=== PATIENT | female | born 1940 | race Caucasian/White ===

== ENCOUNTER 2016-09-13 17:44 | Outpatient (CLI) | payer OTHER ==
[~2016-09-13 17:44] MED LIST: ASPIRIN EC81 MG PO; DIGOXIN0.25 MG PO; EPIPEN 2-PAK0.3 MG INJ; GLIMEPIRIDE1 MG PO; GLUCOSAMINE500 MG PO; HUMALIN 70/30 SC; IBUPROFEN400 MG PO; LIPITOR80 MG PO; LOSARTAN POTAS100 MG PO; MAGNESIUM400 M1 PO; OMEPRAZOLE20 M1 PO; SERTRALINE HCL50 MG PO; VICODIN EQUIVAL1 TAB PO; VITAMIN B121000 CR PO
--- NOTE | 2016-09-13 18:16 | DIAGNOSTIC IMAGING REPORT ---
PROCEDURE: XR CHEST 2 VIEW INDICATION: URI TECHNIQUE: PA and lateral views. COMPARISON: Chest 10/07/1958 FINDINGS: Lungs are clear. Mild cardiomegaly. Thorax is normal. IMPRESSION: 1. No acute disease. Mild cardiomegaly
== END 2016-09-13 23:00 ==
LOC: XR SRH 17:44
DX: J06.9 Acute upper respiratory infection, unspecified (principal); J45.909 Unspecified asthma, uncomplicated

== ENCOUNTER 2016-10-17 14:10 | Outpatient (CLI) | payer OTHER ==
--- NOTE | 2016-10-17 19:28 | DIAGNOSTIC IMAGING REPORT ---
PROCEDURE: MG BILATERAL SCREENING W/CAD INDICATION: Screening. Family history breast carcinoma (cousins, aunts). TECHNIQUE: Bilateral CC and MLO digital views. COMPARISON: Compared to 07/25/2006, 04/12/2005. FINDINGS: Computer-aided detection applied. Moderately with a few dystrophic and vascular calcifications. No change. IMPRESSION: 1. Negative mammogram RESULT CODE: 1- Negative. A. A negative report should not delay biopsy if a dominant or clinically suspicious mass is present. 10-15% of cancers are not identified by x-ray. B. A negative report may reinforce clinical impression. C. Adenosis and dense breasts may obscure an underlying neoplasm. D. False positive reports average 6-10%. E.. A yearly screening mammogram is recommended. A reminder letter will be scheduled.
== END 2016-10-17 23:00 ==
LOC: MAM SRH 14:10
DX: Z12.31 Encounter for screening mammogram for malignant neoplasm of breast (principal); Z80.3 Family history of malignant neoplasm of breast

== ENCOUNTER 2016-11-21 11:56 | Inpatient (IN) | payer OTHER ==
[~2016-11-21] VITALS: Ht 160 cm; Wt 121.7 kg
--- NOTE | 2016-11-21 12:39 | DIAGNOSTIC IMAGING REPORT ---
PROCEDURE: XR CHEST 1 VIEW INDICATION: CP AND SOB TECHNIQUE: Portable AP view 12:16 p.m. COMPARISON: Chest 09/13/2016 and 10/07/1958 FINDINGS: Lungs are clear. Cardiomegaly. Thorax is normal. IMPRESSION: 1. Cardiomegaly. Lungs clear.
--- NOTE | 2016-11-21 17:39 | DIAGNOSTIC IMAGING REPORT ---
PROCEDURE: NM PULMONARY PERFUSION W/VENT INDICATION: Shortness of breath. TECHNIQUE: 40 mCi of technetium-99m DTPA was aerosolized and inhaled. 6 mCi technetium-99m MAA was injected intravenously. Ventilation and perfusion images were obtained in the AP, PA, right lateral, left lateral, KELLER, ST LUCIAN, RPO and LPO positions. COMPARISON: Comparison is made to chest x-ray earlier today (11/21/2016). FINDINGS: There are mildly heterogeneous ventilatory changes throughout the lungs without significant perfusion changes. Overall appearance is compatible with low probability for pulmonary embolus IMPRESSION: 1. Low probability for pulmonary embolus. 2. Findings discussed with Dr. Rose.
--- NOTE | 2016-11-21 17:39 | DIAGNOSTIC IMAGING REPORT ---
PROCEDURE: NM PULMONARY PERFUSION W/VENT INDICATION: Shortness of breath. TECHNIQUE: 40 mCi of technetium-99m DTPA was aerosolized and inhaled. 6 mCi technetium-99m MAA was injected intravenously. Ventilation and perfusion images were obtained in the AP, PA, right lateral, left lateral, KELLER, TAJIK, RPO and LPO positions. COMPARISON: Comparison is made to chest x-ray earlier today (11/21/2016). FINDINGS: There are mildly heterogeneous ventilatory changes throughout the lungs without significant perfusion changes. Overall appearance is compatible with low probability for pulmonary embolus IMPRESSION: 1. Low probability for pulmonary embolus. 2. Findings discussed with Dr. Rose.
--- NOTE | 2016-11-21 18:21 | ED CLINICAL REPORT ---
Clinical Report - Physicians/Mid Levels [facility] [address] [place] [address] 11/21/2016 11:55 Patient: MARYANN GORDON Time Seen: 1200. Arrived- By private vehicle. Historian- patient (daughter). HISTORY OF PRESENT ILLNESS Chief Complaint: DYSPNEA. This started past few days and is still present. It was gradual in onset and has been constant but is not gone now. The dyspnea is described as moderate and is worsened by exertion, is improved by rest and is improved with sitting upright. The patient has had a cough. She has had scant amounts of white sputum. No fever, chest pain or discomfort, calf pain or foot swelling. No anxiety. Similar symptoms previously: (a few times). Recent medical care: Not recently seen/assessed. REVIEW OF SYSTEMS The patient has not had weight loss. No sore throat, nasal discharge, nausea, vomiting or abdominal pain. No diarrhea or skin rash. All systems otherwise negative, except as recorded above. PAST HISTORY See nurses notes. Medications: Gabapentin Oral. Torsemide Oral. Atorvastatin Calcium Oral 80 mg, daily. Carvedilol 3.125 mg twice a day. Eliquis Oral (Tablet 5 mg) 1 tablet, twice a day. EpiPen 2-Roshan Injection. Glimepiride Oral (Tablet 4 mg) 1 tablet, twice a day. Glucosamine HCl Oral (Tablet 500 mg) 1 tablet, twice a day. HumuLIN 70/30 Subcutaneous 27 units q am and 10 units q pm. Lanoxin Oral 0.125 mg, daily. Losartan Potassium Oral 100 mg, daily. Magnesium Oral 500 mg, 2x a day. Omeprazole Oral 20 mg, daily. Sertraline HCl Oral 50 mg, daily. Allergies: Allopurinol. Colchicine. Keflex. Metformin HCl. Penicillins.(swelling) Septra.(hives) Sulfa Antibiotics. Uloric. Vicodin. SOCIAL HISTORY Never smoker. No alcohol use or drug use. No recent travel. Is a local resident. ADDITIONAL NOTES The nursing notes have been reviewed. PHYSICAL EXAM Vital Signs: 11/21/2016 12:02 BP: 132/100. HR: 126. RR: 18. O2 saturation: 94%. Temp: 97.8 F. Oxygen saturation: on oxygen- oxygen saturation low. Appearance: Alert. No acute distress. Eyes: Pupils equal, round and reactive to light. Eyes normal inspection. ENT: Ears normal. Nose normal. Pharynx normal. Uvula midline. Neck: Normal inspection. No jugular venous distention. Neck supple. No JVD. CVS: Tachycardia. Abnormal rhythm. Heart sounds normal. Pulses normal. Respiratory: No respiratory distress. Breath sounds normal. No splinting, wheezes, stridor, rales or rhonchi. Abdomen: Soft and nontender. No organomegaly. Back: Normal inspection. Skin: Skin warm and dry. Normal skin color. No rash. Normal skin turgor. Extremities: Bilateral mild 1+ edema of the lower extremities. Extremities exhibit normal ROM. Neuro: Oriented X 3. No motor deficit. No sensory deficit. LABS, X-RAYS, AND EKG EKG: Atrial fibrillation (narrow-complex) (120). Normal QRS complex. Normal axis. Normal ST and T waves, QT and QTc. a fib with RVR. The study has been interpreted contemporaneously. The study has been independently viewed by me. The EKG appears to be a good tracing. Chest X-ray: (PROCEDURE: XR CHEST 1 VIEW INDICATION: CP AND SOB TECHNIQUE: Portable AP view 12:16 p.m. COMPARISON: Chest 09/13/2016 and 10[birth year]07[birth year]1958 FINDINGS: Lungs are clear. Cardiomegaly. Thorax is normal. IMPRESSION: 1. Cardiomegaly. Lungs clear.). V/Q Scan: Low probability for pulmonary embolism. The study was independently viewed by me and interpreted by the radiologist. The study was discussed with the radiologist (via phone). (PROCEDURE: NM PULMONARY PERFUSION W/VENT INDICATION: Shortness of breath. TECHNIQUE: 40 mCi of technetium-99m DTPA was aerosolized and inhaled. 6 mCi technetium-99m MAA was injected intravenously. Ventilation and perfusion images were obtained in the AP, PA, right lateral, left lateral, KELLER, JENS, RPO and LPO positions. COMPARISON: Comparison is made to chest x-ray earlier today (11/21/2016). FINDINGS: There are mildly heterogeneous ventilatory changes throughout the lungs without significant perfusion changes. Overall appearance is compatible with low probability for pulmonary embolus IMPRESSION: 1. Low probability for pulmonary embolus.). Laboratory Tests: UA-Culture if indicated: (CONRAD: 11/21/2016 14:45) ( [facility] 11/21/2016 15:10) Final results Test Result Flag Units (Reference) URINE COLOR YELLOW URINE APPEARANCE CLEAR URINE GLUCOSE NEGATIVE (NEGATIVE) URINE BILIRUBIN NEGATIVE (NEGATIVE) URINE KETONE NEGATIVE (NEGATIVE) URINE SPECIFIC GRAVITY 1.020 (1.010-1.030) URINE PH 6.0 (5.0-8.0) URINE PROTEIN TRACE (NEGATIVE) URINE UROBILINOGEN 0.2 EU/dL (0.2-1.0) URINE NITRITE NEGATIVE (NEGATIVE) URINE BLOOD NEGATIVE (NEGATIVE) URINE LEUK ESTERASE NEGATIVE (NEGATIVE) URINE RBC NONE SEEN rbc/hpf (0-1) URINE WBC 1-3 wbc/hpf (0-1) URINE EPITHELIAL CELLS 1-3 EPI/hpf (0-5) URINE BACTERIA TRACE (<1+) (NONE SEEN) URINE COMMENT CULT NOT INDICATED 5-10 HYALINE CASTS/LPFURINE CULTURES ARE SET-UP BASED ON THE FOLLOWING CRITERIA:POSITIVE NITRITEPOSITIVE LEUKOCYTE ESTERASEGREATER THAN 10 WHITE BLOOD CELLSMODERATE (2+) OR GREATER BACTERIA CBC w Diff: (CONRAD: 11/21/2016 12:02) ( [facility] 11/21/2016 12:34) Final results Test Result Flag Units (Reference) WHITE BLOOD COUNT 7.6 K/uL (4.5-11.5) RED BLOOD COUNT 4.26 M/uL (4.00-5.20) HEMOGLOBIN 12.5 gm/dL (12.0-16.0) HEMATOCRIT 38.6 % (36.0-46.0) MEAN CELL VOLUME 91 fL (80-100) MEAN CORPUSCULAR HGB 29 pg (26-34) MEAN CORPUSCULAR HGB CONC 32 g/dL (31-37) RED CELL DISTRIBUTION WIDTH 16.8 H % (11.6-14.8) PLATELET COUNT 176 K/uL (150-400) NEUTROPHIL % 73.1 % (50-75) LYMPH % 18.4 L % (25-40) MONO % 6.8 % (3-14) EOSINOPHIL % 1.0 % (0-4) BASOPHIL % 0.7 % (0-2) PT with INR: (CONRAD: 11/21/2016 12:02) ( [facility] 11/21/2016 12:39) Final results Test Result Flag Units (Reference) INR 1.5 H (0.8-1.2) Low Intensity Therapy: INR 1.5-2.0 PT range 18.5-23.1Mod.Intensity Therapy: INR 2.0-3.0 PT range 23.1-31.5High Intensity Therapy: INR 2.5-3.5 PT range 27.4-35.5High Intensity Therapy 2: INR 3.0-4.0 PT range 31.5-39.3 D-DIMER QUANTITATIVE 2.99 H ug/mLFEU (0.27-0.52) The primary value of this quantitative assay relates toits negative predictive value (i.e. exclusion) of pulmonaryembolism/deep vein thrombosis/DIC.Elevated levels of d-dimer may also occur with:, age, cancer, inflammation, liver disease,post-op, infection, hematoma, coronary disease, peripheralarteriopathy, bleeding disorders and thrombolytic treatment.Results should be correlated with other clinical andradiological data.Testing Methodology: Latex Immunoassay BNP: (CONRAD: 11/21/2016 12:02) ( [facility] 11/21/2016 13:46) Final results Test Result Flag Units (Reference) B-TYPE NATRIURETIC PEPTIDE 947 H pg/ml (5-100) TSH: (CONRAD: 11/21/2016 12:02) ( [facility] 11/21/2016 13:40) Final results Test Result Flag Units (Reference) THYROID STIMULATING HORMONE 2.343 uIU/mL (0.30-3.74) CMP: (CONRAD: 11/21/2016 12:02) ( [facility] 11/21/2016 12:50) Final results Test Result Flag Units (Reference) GLUCOSE 258 H mg/dL (70-110) BUN 49 H mg/dL (7-18) CREATININE 1.7 H mg/dL (0.6-1.3) Estimated GFR 31.14 mL/min Estimated GFR- 37.74 mL/min Note: Persistent reduction over 3 months in eGFR<60 mL/min/1.73 m2 defines CKD. Patients with eGFR values>=60 mL/min/1.73 m2 may also have CKD if evidence ofpersistent proteinuria. Additional information may be foundat www.kidney.org. SODIUM 136 mmol/L (136-145) POTASSIUM 5.1 mmol/L (3.5-5.1) CHLORIDE 100 mmol/L (98-107) CARBON DIOXIDE 25 mmol/L (21-32) CALCIUM 9.0 mg/dL (8.5-10.1) TOTAL PROTEIN 8.0 g/dL (6.4-8.2) ALBUMIN 3.3 g/dL (3.3-5.0) BILIRUBIN, TOTAL 1.6 H mg/dL (0.0-1.0) ALKALINE PHOSPHATASE 78 U/L (46-116) AST (SGOT) 37 U/L (15-37) ALT (SGPT) 26 U/L (12-78) TROPONIN I <0.05 ng/mL (0.00-1.5) TROPONIN REFERENCE RANGE:<0.1 NEGATIVE0.1-1.5 INDETERMINANT>1.5 POSITIVE . PROGRESS AND PROCEDURES Course of Care: The patient is a pleasant 76-year-old female with complex past medical history including hypertension, atrial fibrillation, and congestive heart failure as well as diabetes the patient is presenting for evaluation of dyspnea. Differential diagnosis at this time includes congestive heart failure exacerbation, acute myocardial infarction, pneumonia, And PE.. Patient will be evaluated with EKG, chest x-ray, and laboratory studies. Patient is agreeable to the treatment and plan. Patient is noted to be in A. fib with RVR. Because of this, adose of IV metoprolol has been ordered. We'll monitor for their effects. Patient was reevaluated and found to have significant improvement with her atrial fibrillation. Patient is no longer in rapid ventricular response. Laboratory studies are still pending at this time. EKG is noted to be unremarkable. Patient's laboratory studies and EKG are noted for the findings above. Patient will likely need to be admitted to the hospital however because of the patient's elevated d-dimer And elevated creatinine, a ventilation perfusion scan was ordered. Updated family on the time we will need to take for the ventilation perfusion scan totake place. The medication needs to be transported from [place] [facility]. Ventilation perfusion scan is low probability. Because of the patient's negative workup for pulmonary embolism, did not fill the patient has pulmonary embolism. Patient will need to be admitted to the hospital for congestive heart failure exacerbation. Patient in daughter agreeable to the treatment and plan. I discussion patient in regards to her workup here in the emergency department as well as diagnosis and plan of care. All questions have been answered. The patient was admitted to the hospital. Critical care performed (50 minutes). Time is exclusive of separately billable procedures. Time includes: direct patient care, patient reassessment, coordination of patient care, interpretation of data (laboratory data), review of patient's medical records, medical consultation, family consultation regarding treatment decisions and documentation of patient care. CLINICAL IMPRESSION a fib with rvr acute CHF exacerbation. (Electronically signed by Benedicto Rose Dr. 11/27/2016 8:56)
--- NOTE | 2016-11-21 18:21 | ED ORDER SUMMARY ---
..... Patient: MARYANN [facility]ORD[facility] VisitID: [id number] [place] [address] 76y, F Registration Date/Time: 11/21/2016 ORDER SHEET Weight: 115.2 kg (stated) Allergies: Allopurinol, Keflex, Metformin HCl, Penicillins, Septra, Sulfa Antibiotics, Vicodin, Colchicine, Uloric GENERAL ORDERS: Health Education Specialist (Continuous) (CP) (12:05 11/21/2016 Jesús Chester) (Ack 12:07 LNations ER Tech1) (12:15 KHoerner) Chest 1V Urgent (12:11/21/2016 Jesús Chester) (Ack 12:08 LNations ER Tech1) (12:15 KHoerner) CBC w Diff Urgent (12:11/21/2016 Jesús Chester) (Ack 12:07 LNations ER Tech1) (12:34 LWhalen R.N.) CMP Urgent (12:11/21/2016 Jesús Chester) (Ack 12:07 LNations ER Tech1) (12:34 LWhalen R.N.) PT with INR Urgent (12:11/21/2016 Jesús Chester) (Ack 12:07 LNations ER Tech1) (12:34 LWhalen R.N.) UA-Culture if indicated Urgent (12:11/21/2016 Jesús Chester) (Ack 12:08 LNations ER Tech1) (12:39 LWhalen R.N.) Troponin-I Urgent (12:11/21/2016 Jesús Chester) (Ack 12:08 LNations ER Tech1) (12:34 LWhalen R.N.) D-Dimer Urgent (12:11/21/2016 Jesús Chester) (Ack 12:08 LNations ER Tech1) (12:34 LWhalen R.N.) Pulse oximeter (12:11/21/2016 Jesús Chester) (Ack 12:07 LNations ER Tech1) (12:14 KHoerner) Oxygen (2 L/min) (NC) (12:05 11/21/2016 Jesús Chester) (Ack 12:07 LNations ER Tech1) (12:15 Favian) EKG - ER Stat (12:05 11/21/2016 Jesús Chester) (Ack 12:07 LNations ER Tech1) (12:14 Favian) TSH Urgent (12:30 11/21/2016 Jesús Chester) (Ack 12:33 LNations ER Tech1) (12:34 LWhalen R.N.) BNP Urgent (13:16 11/21/2016 Jesús Chester) (Ack 13:21 LNations ER Tech1) (15:26 LWhalen R.N.) VQ Scan (hx of CHF. GFR low) Urgent (13:17 11/21/2016 Jesús Chester) (Ack 13:21 LNations ER Tech1) (15:26 LWhalen R.N.) Diet (Please order in Vserv) (2000 frida Diabetic Diet) (13:44 11/21/2016 LNations ER Tech1 verbal order read back to Jesús Chester) (Ack 13:46 LNations ER Tech1) (15:26 LWhalen R.N.) MEDICATION ORDERS: - (12:30 11/21/2016 Jesús Chester) (Ack 12:46 LWhalen R.N.) (Cancelled: Other18:04 LWhalen R.N.) DuoNeb Neb Tx 1 unit dose (NOW) (13:15 11/21/2016 Jesús Chester) (14:16 Carol) Albuterol Neb Tx 2.5 mg (once now) (15:07 11/21/2016 Jesús Chestre) (Ack 15:27 LWhalen R.N.) (15:59 Carol) NitroGLYCERIN SL 0.4 mg (once now) (17:41 11/21/2016 Jesús Chester) (18:04 LWhalen R.N.) Insulin 70/30 Subcut (NOW) (18:39 11/21/2016 LWhalen R.N. verbal order read back to Jesús Chester) (19:06 LWhalen R.N.) NitroGLYCERIN Paste Topical 0.5 in. (NOW) (20:10 11/21/2016 Jesús Chester) (20:36 Shanice R.N.) IV FLUIDS: IV Saline Lock (12:05 11/21/2016 Jesús Chester) (12:10 eCcille R.N.) Metoprolol IV 2.5 mg (HIGH ALERT MEDICATION, NOW) (12:29 11/21/2016 Jesús Chester) (12:33 Martine R.N.) Lasix IV 20 mg (NOW) (17:40 11/21/2016 Jesús Chester) (18:04 Martine R.N.) ORDER SHEET NOTES: [Electronically signed by Serafin Mike R.N. (22:11 11/21/2016)] [Electronically signed by Benedicto Rose Dr. (08:56 11/27/2016)] [Electronically locked/signed by Serafin Mike R.N. (22:11 11/21/2016)]
--- NOTE | 2016-11-21 18:21 | ED NURSING NOTES ---
Clinical Report - Nurses [facility] [address] [place] [address] 11/21/2016 11:55 [id number] Triage time 12:Nov 21 2016. Acuity: LEVEL 2. Chief Complaint: SHORTNESS OF BREATH, DIFFICULTY BREATHING and WHEEZING. GA COMA SCORE: Ga Coma Scale: 15- eyes open spontaneously (4); best verbal response- oriented x 4 (5); best motor response- obeys commands (6). --12:10 Dre Valdez R.N. 12:02 11/21/16. BP: 132/100. HR: 126. RR: 18. O2 saturation: 94%. Temp: 97.8 F. Pain level now 2/10. --12:10 Dre Valdez R.N. Weight: 115.2 kg stated. Height/Length: 64 inches Per Patient. BMI: 43.6. --12:08 Dre Valdez R.N. Medications Atorvastatin Calcium Oral 80 mg, daily. Carvedilol 3.125 mg twice a day. Eliquis Oral (Tablet 5 mg) 1 tablet, twice a day. EpiPen 2-Roshan Injection. Glimepiride Oral (Tablet 4 mg) 1 tablet, twice a day. Glucosamine HCl Oral (Tablet 500 mg) 1 tablet, twice a day. HumuLIN 70/30 Subcutaneous 27 units q am and 10 units q pm. Lanoxin Oral 0.125 mg, daily. Losartan Potassium Oral 100 mg, daily. Magnesium Oral 500 mg, 2x a day. Omeprazole Oral 20 mg, daily. Sertraline HCl Oral 50 mg, daily. --12:06 Dre Valdez R.N. Torsemide Oral. --12:06 Dre Valdez R.N. Gabapentin Oral. --12:07 Dre Valdez R.N. Allergies Allopurinol. Keflex. Metformin HCl. Penicillins.(swelling) Septra.(hives) Sulfa Antibiotics. Vicodin. --12:06 Dre Valdez R.N. Colchicine. --12:07 Dre Valdez R.N. Uloric. --12:07 Dre Valdez R.N. History Arrived by private vehicle. Historian: patient. Accompanied by family. ( Chest pain along with SOB has had a previous cough. The pharmacy was out of Torsemide and fill her prescription has been out for three days.). She has had a cough, wheezing and chest pain. No fever, chills or back pain. PAST MEDICAL HX: Hypertension. Congestive heart failure. No history of asthma, chronic obstructive pulmonary disease or diabetes mellitus. Immunizations: up-to-date. SOCIAL HX: Never smoker. FALL RISK ASSESSMENT: Fall risk assessment completed. No fall risk identified. NUTRITIONAL RISK ASSESSMENT: The nutritional risk assessment revealed no deficiencies. FUNCTIONAL ASSESSMENT: Functional assessment: no impairments noted. LEARNING NEEDS ASSESSMENT: The learning needs assessment revealed no barriers. --12:10 Dre Valdez R.N. PROBLEMS: Abdominal Pain. Chest Pain. Dyspnea. Hypomagnesemia. Atrial Fibrillation. Congestive Heart Failure. Hives. Diabetes Mellitus. Immunizations. Syncope. Pneumonia. Sinus Problems. Diabetes Mellitus Type 2. Hypertension. --12:08 Dre Valdez R.N. ADDITIONAL SURGERIES: Cataract Surgery. Polyps from uterus. --12:08 Dre Valdez R.N. Interventions ID and allergy band on patient. --12:10 Dre Valdez R.N. PHYSICAL ASSESSMENT To room via wheelchair. GENERAL / NEURO / PSYCH: Alert. Oriented X 4. Appears in distress. HEENT: Mucous membranes are pink. RESPIRATORY: Mild respiratory distress. The patient can speak a few words at a time. Accessory muscle use. Chest wall tenderness. Breath sounds within normal limits. CVS: Normal sinus rhythm noted. Capillary refill less than 2 seconds. GI / : Abdomen soft and nontender. Bowel sounds within normal limits. SKIN: Skin is warm and dry. Normal skin turgor. --12:12 Dre Valdez R.N. ( patient sitting upright in bed, conversant, daughter at bedside.). GENERAL / NEURO / PSYCH: Alert. Oriented X 4. Appears in no acute distress. HEENT: Mucous membranes are pink. RESPIRATORY: Respirations not labored. Breath sounds within normal limits. CVS: Capillary refill less than 2 seconds. GI / : Abdomen soft. SKIN: Skin is warm and dry. --19:26 Serafin Mike R.N. NURSING PROGRESS NOTES 12:00 11/21/2016 Site #1 started via IV in the left antecubital space with an 20g angiocath, with aseptic technique and good blood return; one attempt. Blood drawn: rainbow set. Labeled in the presence of the patient and sent to the lab. Saline lock flushed with 10 mL saline. --12:10 Yonatan Cruz R.N. The initial plan of care for this patient includes an assessment with efforts to address patient positioning and appropriate ambient lighting. monitor and storage bin tender, pulse oximeter and NIBP monitor placed on patient. Reassurance given. Call light placed in reach. Side rails up x 1. Bed placed in lowest position. Brakes of bed on. --12:13 Dre Valdez R.N. 12:14 11/21/16. EKG time: (1211). EKG was performed by a joyce and shown to the ED physician. --12:14 Aldo Owusu 12:18 11/21/2016 Site #2 started via IV in the left antecubital space with an 20g angiocath, with aseptic technique and good blood return; one attempt. Blood drawn: rainbow set. Labeled in the presence of the patient and sent to the lab. Saline lock flushed with 10 mL saline. --12:33 Dre Valdez R.N. 12:33 11/21/2016 Metoprolol (Metoprolol Tartrate) IVP 2.5 mg given over 2 minute(s) via site #1. Allergies verified and confirmed 5 rights. IV patency established. IV site checked: no pain, redness, or swelling. IV flushed thoroughly pre- and post-medication administration. --12:33 Dre Valdez R.N. 13:15 11/21/2016 Duoneb (Ipratropium-Albuterol) Neb TX Nebulizer 1 unit dose given. Given by the respiratory therapist. Allergies verified and confirmed 5 rights. --14:16 Omayra Benson 14:08 11/21/2016 Albuterol Neb TX Nebulizer 1 unit dose given. Given by the respiratory therapist. Allergies verified and confirmed 5 rights. --15:59 Omayra Benson 18:04 11/21/2016 Lasix IVP 20 mg given over 2 minute(s) via site #1. Allergies verified and confirmed 5 rights. IV patency established. IV site checked: no pain, redness, or swelling. IV flushed thoroughly pre- and post-medication administration. --18:04 Dre Valdez R.N. 18:04 11/21/2016 Nitroglycerin SL Tablets 0.4 mg given. Allergies verified and confirmed 5 rights. --18:04 Dre Valdez R.N. 06:15 late entry -. Finger stick glucose: 219. --18:24 Vanessa Landa ER Tech1 18:51 11/21/2016 INSULIN 70/30 Subcutaneous 5 unit given. Given in the left upper arm. Allergies verified and confirmed 5 rights. --19:06 Dre Valdez R.N. 17:00 11/21/16. BP: 129/89. HR: 116. RR: 21. O2 saturation: 97%. 16:30 11/21/16. BP: 142/74. HR: 116. RR: 21. O2 saturation: 97%. 15:00 11/21/16. BP: 126/91. HR: 116. RR: 19. O2 saturation: 95%. 14:00 11/21/16. BP: 129/101. HR: 116. RR: 19. O2 saturation: 99%. 13:00 11/21/16. BP: 133/87. HR: 109. RR: 23. O2 saturation: 96%. 12:15 11/21/16. BP: 136/87. HR: 112. RR: 24. O2 saturation: 98%. --19:19 Dre Valdez R.N. ( Report given to Haja LEUNG). --19:19 Dre Valdez R.N. 20:27 11/21/16. BP: 146/94. HR: 115 (irregular and tachycardic). O2 saturation: 97% on room air. --20:28 Serafin Mike R.N. 20:36 11/21/2016 NITROGLYCERIN PASTE Topical Paste 0.5 inch. Applied to the right chest. Allergies verified and confirmed 5 rights. --20:36 Serafin Mike R.N. ( Reprot called to Carry, RN admitting RN for floor.). --21:53 Serafin Mike R.N. DISPOSITION / DISCHARGE Departure time: 22:10. Condition at departure: stable. The goals identified in the patient's plan of care were met. Discharge instructions provided and reviewed with the patient. Patient and family verbalized understanding. Admitted (22:08). Transported via stretcher by transport team with O2. Patient's personal items include: shirt, pants and purse, home oxygen tank; items were transported with the patient. --22:10 Serafin Mike R.N. Locked/Released at 11/21/2016 22:11 by Serafin iMke R.N.
--- NOTE | 2016-11-21 18:21 | ED ORDER SUMMARY ---
..... Patient: MARYANN GORDON OrderSheet [facility] VisitID: [id number] [place] [address] 76y, F Registration Date/Time: 11/21/2016 ORDER SHEET Weight: 115.2 kg (stated) Allergies: Allopurinol, Keflex, Metformin HCl, Penicillins, Septra, Sulfa Antibiotics, Vicodin, Colchicine, Uloric GENERAL ORDERS: Bench Precision Assembler (Continuous) (CP) (12:05 11/21/2016 Jesús Chester) (Ack 12:07 LNations ER Tech1) (12:15 KHoerner) Chest 1V Urgent (12:11/21/2016 Jesús Chester) (Ack 12:08 LNations ER Tech1) (12:15 KHoerner) CBC w Diff Urgent (12:11/21/2016 Jesús Chester) (Ack 12:07 LNations ER Tech1) (12:34 LWhalen R.N.) CMP Urgent (12:11/21/2016 Jesús Chester) (Ack 12:07 LNations ER Tech1) (12:34 LWhalen R.N.) PT with INR Urgent (12:11/21/2016 Jesús Chester) (Ack 12:07 LNations ER Tech1) (12:34 LWhalen R.N.) UA-Culture if indicated Urgent (12:11/21/2016 Jesús Chester) (Ack 12:08 LNations ER Tech1) (12:39 LWhalen R.N.) Troponin-I Urgent (12:11/21/2016 Jesús Chester) (Ack 12:08 LNations ER Tech1) (12:34 LWhalen R.N.) D-Dimer Urgent (12:11/21/2016 Jesús Chester) (Ack 12:08 LNations ER Tech1) (12:34 LWhalen R.N.) Pulse oximeter (12:11/21/2016 Jesús Chester) (Ack 12:07 LNations ER Tech1) (12:14 KHoerner) Oxygen (2 L/min) (NC) (12:05 11/21/2016 Jesús Chester) (Ack 12:07 LNations ER Tech1) (12:15 Favian) EKG - ER Stat (12:05 11/21/2016 Jesús Chester) (Ack 12:07 LNations ER Tech1) (12:14 Favian) TSH Urgent (12:30 11/21/2016 Jesús Chester) (Ack 12:33 LNations ER Tech1) (12:34 LWhalen R.N.) BNP Urgent (13:16 11/21/2016 Jesús Chester) (Ack 13:21 LNations ER Tech1) (15:26 LWhalen R.N.) VQ Scan (hx of CHF. GFR low) Urgent (13:17 11/21/2016 Jesús Chester) (Ack 13:21 LNations ER Tech1) (15:26 LWhalen R.N.) Diet (Please order in [employer]) (2000 frida Diabetic Diet) (13:44 11/21/2016 LNations ER Tech1 verbal order read back to Jesús Chester) (Ack 13:46 LNations ER Tech1) (15:26 LWhalen R.N.) MEDICATION ORDERS: - (12:30 11/21/2016 Jesús Chester) (Ack 12:46 LWhalen R.N.) (Cancelled: Other18:04 LWhalen R.N.) DuoNeb Neb Tx 1 unit dose (NOW) (13:15 11/21/2016 Jesús Chester) (14:16 Carol) Albuterol Neb Tx 2.5 mg (once now) (15:07 11/21/2016 Jesús Chester) (Ack 15:27 LWhalen R.N.) (15:59 Carol) NitroGLYCERIN SL 0.4 mg (once now) (17:41 11/21/2016 Jesús Chester) (18:04 LWhalen R.N.) Insulin 70/30 Subcut (NOW) (18:39 11/21/2016 LWhalen R.N. verbal order read back to Jesús Chester) (19:06 LWhalen R.N.) NitroGLYCERIN Paste Topical 0.5 in. (NOW) (20:10 11/21/2016 Jesús Chester) (20:36 Shanice R.N.) IV FLUIDS: IV Saline Lock (12:05 11/21/2016 Jesús Chester) (12:10 Cecille R.N.) Metoprolol IV 2.5 mg (HIGH ALERT MEDICATION, NOW) (12:29 11/21/2016 Jesús Chester) (12:33 Martine R.N.) Lasix IV 20 mg (NOW) (17:40 11/21/2016 Jesús Chester) (18:04 Martine R.N.) ORDER SHEET NOTES: [Electronically signed by Serafin Mike R.N. (22:11 11/21/2016)] [Electronically signed by Benedicto Rose Dr. (08:56 11/27/2016)] [Electronically locked/signed by Serafin Mike R.N. (22:11 11/21/2016)]
--- NOTE | 2016-11-21 21:06 | Progress Note ---
Subjective General Admission History and Physical Examination Patient Name: Jessa Mays Admission Date: November 21, 2016 Primary Care Provider: Hector Croft M.D. Attending Physician: Hector Croft M.D. Admitting Physician: Milton Padron M.D. Code Status: Full Code Room: 207 SUBJECTIVE Historian: Patient and family Reliability: Fair-good Chief Complaint: Shortness of breath History of Present Illness: The patient is a 76-year-old white female with a significant past medical history of CHF, type 2 diabetes mellitus, diabetic neuropathy, hypothyroidism, hypertension, gout, depression, anemia, and degenerative joint disease who presented to [facility] emergency department on the day of admission secondary to complaints of shortness of breath. [facility] ER evaluation was consistent with exacerbation of CHF, atrial fibrillation with rapid ventricular response. Secondary to the above, the patient was admitted by Milton Padron M.D. for further evaluation and treatment. PAST MEDICAL HISTORY Illnesses: 1. Hypertension 2. CHF 3. Type 2 diabetes mellitus 4. Diabetic neuropathy 5. Hypothyroidism 6. Gout 7. Depression 8. Chronic anemia 9. Degenerative joint disease Allergies: 1. Allopurinol 2. Septra 3. Metformin 4. Cephalosporins 5. Penicillin 6. Bee stings 7. Colchicine 8. Uloric Medications: 1. Lipitor 80 mg by mouth daily 2. Coreg 3.125 mg by mouth twice a day 3. Eliquis 5 mg by mouth twice a day 4. EpiPen when necessary 5. Glimepiride 4 mg by mouth daily 6. Glucosamine 500 mg by mouth twice a day 7. Humulin 70/30 19 units subcutaneous every morning and 5 units subcutaneous every afternoon 8. Lanoxin 0.125 mg by mouth daily 9. Cozaar 50 mg by mouth daily 10. Magnesium 500 mg by mouth twice a day 11. Prilosec 20 mg by mouth daily 12. Zoloft 50 mg by mouth daily 13. Torsemide 20 mg by mouth daily 14. Gabapentin 300 mg by mouth twice a day Surgery: 1. None Injuries: 1. No significant Hospitalizations: 1. For above surgery and medical problems FAMILY HISTORY Parents: 1. Father, Eulogio, , 51, leukemia, 2. Mother, Jacklyn, , 78, CHF, diabetes mellitus Siblings: 1. Male, John, , 52, secondary 2. Female, Irva, , 78, cancer 3. Male, plan, living, 69, healthy Children: 1. The patient has 6 children, one secondary to [place], cirrhosis. History of Graves' disease, cirrhosis, cancer and other children. Other significant family history: Aunt with breast cancer, uncle with colon cancer SOCIAL HISTORY 1. Marital Status: 2. Mandaen: [employer] 3. Education: High school 4. 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 Occupational health exposures: Prolonged sitting HABITS 1. Tobacco: None 2. Drugs: None 3. Alcohol: 8 ounces per week 4. Caffeine: One cup coffee per day HEALTH SUPERVISION Item/Test 1. Vision screen: 2015 2. Cholesterol Profile: 2016 3. PSA: Not applicable 4. BARBARA: Not applicable 5. FOBT: Unknown 6. Blood Glucose: 2016 7. Colonoscopy: 2010 8. History and physical exam: 2015 9. Audiogram: Unknown 10. Mammogram: 2016 11. Pap/pelvic exam: No recent IMMUNIZATIONS: 1. Pneumococcal: 2012 2. Influenza: 2015 3. Tetanus: Unknown ADVANCED DIRECTIVES: 1. Living well: No 2. POLST: No 3. Code Status: Full Code 4. 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 Donor card: No REVIEW OF SYSTEMS Remarkable for those things stated in the history of present illness and past medical history. Seventeen point review of system completed with the following notable findings: General: Fatigue, pain, weakness Skin: Dryness Eyes: Excessive tearing, redness Respiratory: Shortness of breath, cough, wheezing, sputum production, streaks of blood in sputum Cardiovascular: Chest tightness, palpitations, rapid heart rate, ankle edema, shortness of breath when lying flat Gastrointestinal: Reflux Muscle skeletal: Joint pain-knees, hands, backache Neurological: Diabetic neuropathy Endocrine: Diabetes Psychological: Depression Physical Exam Vital Signs / I&Os Blood pressure: 138/93 mmHg Pulse: 114 Respirations: 24 Temperature: 97 9 Oxygen saturation: 94% 2 L per day nasal cannula General Appearance Alert, Oriented X3, Cooperative, No acute distress HEENT Atraumatic, PERRLA, EOMI, Moist mucous membranes Lungs Scattered rhonchi. Minimal basilar crackles, minimal expiratory wheezes. Neck Supple, No JVD Cardiovascular Normal S1 and S2, irregular rhythm, mild tachycardia Abdomen Normal bowel sounds, Soft, No tenderness, No guarding Extremities No cyanosis, No clubbing, trace pedal edema Neurological Cranial nerves intact, Strength 5/5 x4 ext's, No lateralizing signs Psych/Mental Status Mental status normal, Mood normal LAB Results Laboratory Tests 11/21 11/21 11/21 1445 1202 1202 Chemistry B-Natriuretic Peptide (5 - 100 pg/ml) 947 TSH 3rd Generation (0.30 - 3.74 uIU/mL) 2.343 Urines Urine Color YELLOW Urine Appearance CLEAR Urine pH (5.0 - 8.0) 6.0 Ur Specific [place] (1.010 - 1.030) 1.020 Urine Protein (NEGATIVE) TRACE Urine Ketones (NEGATIVE) NEGATIVE Urine Blood (NEGATIVE) NEGATIVE Urine Nitrite (NEGATIVE) NEGATIVE Urine Bilirubin (NEGATIVE) NEGATIVE Urine Urobilinogen (0.2 - 1.0 EU/dL) 0.2 Ur Leukocyte Esterase (NEGATIVE) NEGATIVE Urine RBC (0 - 1 rbc/hpf) NONE SEEN Urine WBC (0 - 1 wbc/hpf) 1-3 Ur Epithelial Cells (0 - 5 EPI/hpf) 1-3 Urine Bacteria (NONE SEEN) TRACE (<1+) Urine Glucose (NEGATIVE) NEGATIVE Urine Comment CULT NOT INDICATED 11/21 1202 Chemistry Plasma Sodium (136 - 145 mmol/L) 136 Plasma Potassium (3.5 - 5.1 mmol/L) 5.1 Plasma Chloride (98 - 107 mmol/L) 100 CO2 (Enzymatic) (21 - 32 mmol/L) 25 BUN (7 - 18 mg/dL) 49 Creatinine (0.6 - 1.3 mg/dL) 1.7 Est GFR ( Amer) (mL/min) 37.74 Est GFR (Non-Af Amer) (mL/min) 31.14 Glucose (70 - 110 mg/dL) 258 Plasma Calcium (8.5 - 10.1 mg/dL) 9.0 Total Bilirubin (0.0 - 1.0 mg/dL) 1.6 AST (15 - 37 U/L) 37 ALT (12 - 78 U/L) 26 Alkaline Phosphatase (46 - 116 U/L) 78 Troponin (0.00 - 1.5 ng/mL) <0.05 Total Protein (6.4 - 8.2 g/dL) 8.0 Albumin (3.3 - 5.0 g/dL) 3.3 Coagulation INR (0.8 - 1.2) 1.5 D-Dimer, Quantitative (0.27 - 0.52 ug/mLFEU) 2.99 Hematology WBC (4.5 - 11.5 K/uL) 7.6 RBC (4.00 - 5.20 M/uL) 4.26 Hgb (12.0 - 16.0 gm/dL) 12.5 Hct (36.0 - 46.0 %) 38.6 MCV (80 - 100 fL) 91 MCH (26 - 34 pg) 29 RDW (11.6 - 14.8 %) 16.8 Neut % (Auto) (50 - 75 %) 73.1 Lymph % (Auto) (25 - 40 %) 18.4 [place] % (Auto) (3 - 14 %) 6.8 Eos % (Auto) (0 - 4 %) 1.0 Baso % (Auto) (0 - 2 %) 0.7 Plt Count, EDTA (150 - 400 K/uL) 176 PUBS MCHC (31 - 37 g/dL) 32 Imaging Chest X-Ray Impression: 1. Development of moderate cardiomegaly and mild congestive heart failure. 2. Findings discussed with Dr. Rose. Addendum by: Emily Devi MD Dictated by: EMILY DEVI MD [id number] Pulmonary VQ Scan IMPRESSION: 1. Low probability for pulmonary embolus. 2. Findings discussed with Dr. Rose. Dictated by: EMILY DEVI MD D: MEGAN;11/21/16 4687 Assessment and Plan Problem List 1. CHF (congestive heart failure) Status Chronic Onset Date Unknown Plan -Patient presents with findings of mild CHF -Atacand, Coreg, Lasix, digoxin, and topical nitrates -Echocardiogram -Low-salt diet -Monitor 2. Atrial fibrillation Status Chronic Onset Date Unknown Plan -Patient presents with findings of atrial fibrillation with rapid ventricular response -Increase Coreg to 6.25 mg by mouth twice a day -Digoxin 0.125 mg by mouth daily -Monitor 3. Chronic anticoagulation Status Chronic Onset Date Unknown Plan -Patient on chronic anticoagulation. -continue Eliquis 5 mg by mouth twice a day 4. Diabetes mellitus Status Chronic Onset Date Unknown Plan -Patient with long-standing history of diabetes mellitus -Continue outpatient medical regimen -Monitor before meals and at bedtime blood sugar -Insulin sliding scales necessary -Check hemoglobin A1c 5. Hypertension Status Chronic Onset Date Unknown Plan -Patient with long-standing history of hypertension -Continue outpatient medical regimen -Monitor -Low-salt diet 6. Hypothyroidism Status Chronic Onset Date Unknown Plan -Patient with note stating hypothyroidism in the past -No current treatment. -Check TSH in a.m. 7. Hyperlipidemia Status Chronic Onset Date Unknown Plan -Patient with history of hyperlipidemia -Continue Lipitor 80 mg by mouth daily -Follow-up with PCP -Low-fat diet 8. Depression Status Chronic Onset Date Unknown Plan -Patient with history of depression -Continue Zoloft 50 mg by mouth daily Current status: Fair, unstable Anticipated discharge date: Anticipated discharge 1-2 days with improved status Anticipated discharge placement: Home Patient care time: Time spent in chart review, patient interview, physical exam, CPOE, and care documentation: 70 minutes Visit to patient today: 2 Complexity of care: High DVT prophylaxis: Eliquis 5 mg by mouth twice a day GI prophylaxis: Protonix 40 mg by mouth daily Advanced care plan: Advanced care plan established. Full CODE STATUS E&M Codes Admission: Inpt-High/07025
[2016-11-21 22:37] VITALS: BP 138/93
[2016-11-22 02:33] VITALS: BP 130/84
[2016-11-22 07:32] VITALS: BP 133/89
[2016-11-22 11:28] VITALS: BP 126/86
--- NOTE | 2016-11-22 13:34 | Progress Note ---
Subjective General 76yo female admitted with worsening SOB. She missed diuretic med x 3 days due to running out. Additionally she has had URI with sinus congestion and cough for over a month. Sinus part improved with inhaler but cough persisted. Now has cough and wheezing and ran out of inhaler. SOB improved in hospital with diuresis. Physical Exam Vital Signs / I&Os Vital Signs Date Time Temp Pulse Resp B/P Pulse O2 O2 Flow FiO2 Ox Delivery Rate 11/22 1128 98.1 90 20 126/86 97 Nasal 2.0 Cannula 11/22 0947 2.0 11/22 0911 104 11/22 0741 110 11/22 0732 98.8 116 20 133/89 97 Nasal 2.0 Cannula 11/22 0725 2.0 11/22 0505 2.0 11/22 0233 97.5 100 20 130/84 92 Nasal 2.0 Cannula 11/21 2304 2.0 11/21 2237 97.9 114 24 138/93 94 11/21 2230 Room Air 11/21 1408 2.0 11/21 1334 2.0 I&O 11/21 0800 11/21 1600 11/22 0000 Intake Total Output Total Balance General Appearance Alert, Oriented X3, Cooperative, No acute distress Lungs Mild wheezing. Cardiovascular Irregularly irregular. Abdomen Normal bowel sounds, Soft, No tenderness Extremities 1+ edema. Skin No Rashes LAB Results Laboratory Tests 11/21 11/21 11/22 11/22 1445 2130 0520 0520 Chemistry Plasma Sodium (136 - 145 mmol/L) 134 Plasma Potassium (3.5 - 5.1 mmol/L) 4.0 Plasma Chloride (98 - 107 mmol/L) 100 CO2 (Enzymatic) (21 - 32 mmol/L) 24 BUN (7 - 18 mg/dL) 52 Creatinine (0.6 - 1.3 mg/dL) 1.7 Est GFR ( Amer) (mL/min) 37.74 Est GFR (Non-Af Amer) (mL/min) 31.14 Glucose (70 - 110 mg/dL) 296 Hemoglobin A1c % (4.5 - 6.2 %) 8.7 Plasma Calcium (8.5 - 10.1 mg/dL) 9.0 Total Bilirubin (0.0 - 1.0 mg/dL) 1.6 AST (15 - 37 U/L) 39 ALT (12 - 78 U/L) 29 Alkaline Phosphatase (46 - 116 U/L) 71 Troponin (0.00 - 1.5 ng/mL) <0.05 Total Protein (6.4 - 8.2 g/dL) 7.5 Albumin (3.3 - 5.0 g/dL) 3.2 TSH 3rd Generation (0.30 - 3.74 uIU/mL) 2.315 Urines Urine Color YELLOW Urine Appearance CLEAR Urine pH (5.0 - 8.0) 6.0 Ur Specific [place] (1.010 - 1.030) 1.020 Urine Protein (NEGATIVE) TRACE Urine Ketones (NEGATIVE) NEGATIVE Urine Blood (NEGATIVE) NEGATIVE Urine Nitrite (NEGATIVE) NEGATIVE Urine Bilirubin (NEGATIVE) NEGATIVE Urine Urobilinogen (0.2 - 1.0 EU/dL) 0.2 Ur Leukocyte Esterase (NEGATIVE) NEGATIVE Urine RBC (0 - 1 rbc/hpf) NONE SEEN Urine WBC (0 - 1 wbc/hpf) 1-3 Ur Epithelial Cells (0 - 5 EPI/hpf) 1-3 Urine Bacteria (NONE SEEN) TRACE (<1+) Urine Glucose (NEGATIVE) NEGATIVE Urine Comment CULT NOT INDICATED 11/22 11/22 0520 1320 Chemistry Troponin (0.00 - 1.5 ng/mL) <0.05 Pending Imaging CHF on CXR. Assessment and Plan Problem List 1. CHF exacerbation Plan Increase diuresis. 2. Atrial fibrillation with rapid ventricular response Plan B puja increased. 3. Depression Status Chronic Onset Date Unknown Plan stable 4. Hyperlipidemia Status Chronic Onset Date Unknown Plan Stable on statin. 5. Hypertension Status Chronic Onset Date Unknown Plan B puja increased. 6. Diabetes mellitus Status Chronic Onset Date Unknown Plan On sliding scale.
[2016-11-22 14:45] VITALS: BP 121/86
[2016-11-22 18:30] VITALS: BP 105/80
[2016-11-22 20:45] VITALS: BP 129/66
[2016-11-23 03:48] VITALS: BP 116/69
[2016-11-23 07:11] VITALS: BP 121/69
--- NOTE | 2016-11-23 07:46 | Progress Note ---
Subjective General 76yo female admitted with worsening SOB. She missed diuretic med x 3 days due to running out. Additionally she has had URI with sinus congestion and cough for over a month. Sinus part improved with inhaler but cough persisted. Has cough and wheezing and ran out of inhaler. SOB improved in hospital with diuresis. Today notes persistent cough and wheeze. Abdominal discomfort has decreased and is feeling better overall. Denies nausea, vomiting, cp/palp. Physical Exam Vital Signs / I&Os Vital Signs Date Time Temp Pulse Resp B/P Pulse O2 O2 Flow FiO2 Ox Delivery Rate 11/23 0711 97.9 99 22 121/69 97 Nasal 3.0 Cannula 11/23 0348 98.1 91 22 116/69 98 Nasal 3.0 Cannula 11/23 0117 2.0 11/23 0115 Nasal 3.0 Cannula 11/22 2230 98.4 11/22 2045 99 20 129/66 100 Nasal 2.0 Cannula 11/22 2000 86 11/22 1930 2.0 11/22 1830 97.9 110 20 105/80 100 Nasal 2.0 Cannula 11/22 1821 111 11/22 1623 2.0 11/22 1445 97.5 102 20 121/86 99 Nasal 2.0 Cannula 11/22 1329 2.0 11/22 1128 98.1 90 20 126/86 97 Nasal 2.0 Cannula 11/22 0947 2.0 11/22 0911 104 I&O 11/22 0800 11/22 1600 11/23 0000 Intake Total 679 1534 1050 Output Total 950 1200 2125 Balance -271 334 -1075 General Appearance Alert, Oriented X3, Cooperative, No acute distress Lungs Diffuse wheeze and rhonchi. Coughing periodically. Cardiovascular Regular rate and rhythm Abdomen Normal bowel sounds, Soft, No tenderness Extremities Trace edema. Skin No Rashes LAB Results Laboratory Tests 11/22 11/23 11/23 1325 0535 0535 Chemistry Plasma Sodium (136 - 145 mmol/L) 138 Plasma Potassium (3.5 - 5.1 mmol/L) 4.1 Plasma Chloride (98 - 107 mmol/L) 102 CO2 (Enzymatic) (21 - 32 mmol/L) 24 BUN (7 - 18 mg/dL) 52 Creatinine (0.6 - 1.3 mg/dL) 1.8 Est GFR ( Amer) (mL/min) 35.33 Est GFR (Non-Af Amer) (mL/min) 29.15 Glucose (70 - 110 mg/dL) 113 Plasma Calcium (8.5 - 10.1 mg/dL) 8.5 Plasma Magnesium (1.8 - 2.4 mg/dL) 1.1 Total Bilirubin (0.0 - 1.0 mg/dL) 1.1 AST (15 - 37 U/L) 40 ALT (12 - 78 U/L) 32 Alkaline Phosphatase (46 - 116 U/L) 64 Troponin (0.00 - 1.5 ng/mL) <0.05 B-Natriuretic Peptide (5 - 100 pg/ml) 729 Total Protein (6.4 - 8.2 g/dL) 6.6 Albumin (3.3 - 5.0 g/dL) 2.9 Hematology WBC (4.5 - 11.5 K/uL) 7.6 RBC (4.00 - 5.20 M/uL) 3.88 Hgb (12.0 - 16.0 gm/dL) 11.5 Hct (36.0 - 46.0 %) 35.2 MCV (80 - 100 fL) 91 MCH (26 - 34 pg) 30 RDW (11.6 - 14.8 %) 16.9 Neut % (Auto) (50 - 75 %) 63.5 Lymph % (Auto) (25 - 40 %) 21.2 [place] % (Auto) (3 - 14 %) 7.4 Eos % (Auto) (0 - 4 %) 7.3 Baso % (Auto) (0 - 2 %) 0.6 Plt Count, EDTA (150 - 400 K/uL) 135 PUBS MCHC (31 - 37 g/dL) 33 Assessment and Plan Problem List 1. CHF exacerbation Plan Improving with diuresis. 2. Atrial fibrillation with rapid ventricular response Plan Stable with rate averaging about 100. 3. Diabetes mellitus Status Chronic Onset Date Unknown Plan Stable on present sliding scale and home meds. 4. Hypomagnesemia Plan Probably due to diuresis. Will supplement.
[2016-11-23 11:15] VITALS: BP 116/73
--- NOTE | 2016-11-23 13:59 | Progress Note ---
Subjective General Persistent and worsening cough in spite of diuresis. CXR in ER clear. Physical Exam Vital Signs / I&Os Vital Signs Date Time Temp Pulse Resp B/P Pulse O2 O2 Flow FiO2 Ox Delivery Rate 11/23 1115 98.2 88 22 116/73 97 Nasal 3.0 Cannula 11/23 0943 3.0 11/23 0813 92 11/23 0812 92 11/23 0739 3.0 11/23 0711 97.9 99 22 121/69 97 Nasal 3.0 Cannula 11/23 0348 98.1 91 22 116/69 98 Nasal 3.0 Cannula 11/23 0117 2.0 11/23 0115 Nasal 3.0 Cannula 11/22 2230 98.4 11/22 2045 99 20 129/66 100 Nasal 2.0 Cannula 11/22 2000 86 11/22 1930 2.0 11/22 1830 97.9 110 20 105/80 100 Nasal 2.0 Cannula 11/22 1821 111 11/22 1623 2.0 11/22 1445 97.5 102 20 121/86 99 Nasal 2.0 Cannula I&O 11/22 0800 11/22 1600 11/23 0000 Intake Total 679 1534 1050 Output Total 950 1200 2125 Balance -271 334 -1075 General Appearance Alert, Oriented X3, Cooperative, No acute distress Lungs Bilateral rhonchi and wheeze. Cardiovascular Regular rate and rhythm Extremities Trace edema. Assessment and Plan Problem List 1. Bronchitis Plan Will start antibiotic. 2. CHF exacerbation Plan Continue diuresis.
[2016-11-23 14:31] VITALS: BP 119/63
[2016-11-23 18:54] VITALS: BP 100/64; BP 122/38
[2016-11-23 23:30] VITALS: BP 120/66
[2016-11-24 03:00] VITALS: BP 117/74
[2016-11-24 06:42] VITALS: BP 103/62
--- NOTE | 2016-11-24 07:34 | Progress Note ---
Subjective General 76 yo female admitted with CHF exacerbation. Diuresing gradually with good results and declining BNP, however pt has had increasing cough. Diagnosed yesterday with bronchitis. Started on zithromax. Physical Exam Vital Signs / I&Os Vital Signs Date Time Temp Pulse Resp B/P Pulse O2 O2 Flow FiO2 Ox Delivery Rate 11/24 0727 2.0 11/24 0642 97.9 103 21 103/62 94 Nasal 2.0 Cannula 11/24 0300 98.1 99 18 117/74 99 Nasal 2.0 Cannula 11/24 0038 2.0 11/23 2330 97.5 86 20 120/66 98 Nasal 2.0 Cannula 11/23 2230 Nasal 2.0 Cannula 11/23 1930 2.0 11/23 1854 97.5 84 20 100/64 99 Nasal Cannula 11/23 1733 102 11/23 1530 Nasal 2.0 Cannula 11/23 1431 97.7 84 20 119/63 98 Nasal 2.0 Cannula 11/23 1403 2.0 11/23 1115 98.2 88 22 116/73 97 Nasal 3.0 Cannula 11/23 0943 3.0 11/23 0813 92 11/23 0812 92 11/23 0739 3.0 I&O 11/23 0800 11/23 1600 11/24 0000 Intake Total 1247 2183 480 Output Total 1000 2500 2250 Balance 247 -317 -1770 General Appearance No acute distress Lungs Bilateral rhonchi and wheeze. Cardiovascular Regular rate and rhythm Abdomen Soft, No tenderness Extremities No edema LAB Results Laboratory Tests 11/24 11/24 0510 0510 Chemistry Plasma Sodium (136 - 145 mmol/L) 139 Plasma Potassium (3.5 - 5.1 mmol/L) 3.7 Plasma Chloride (98 - 107 mmol/L) 101 CO2 (Enzymatic) (21 - 32 mmol/L) 30 BUN (7 - 18 mg/dL) 52 Creatinine (0.6 - 1.3 mg/dL) 1.5 Est GFR ( Amer) (mL/min) 43.61 Est GFR (Non-Af Amer) (mL/min) 35.98 Glucose (70 - 110 mg/dL) 132 Plasma Calcium (8.5 - 10.1 mg/dL) 8.4 Plasma Magnesium (1.8 - 2.4 mg/dL) 1.3 Total Bilirubin (0.0 - 1.0 mg/dL) 1.1 AST (15 - 37 U/L) 40 ALT (12 - 78 U/L) 33 Alkaline Phosphatase (46 - 116 U/L) 62 B-Natriuretic Peptide (5 - 100 pg/ml) 368 Total Protein (6.4 - 8.2 g/dL) 6.4 Albumin (3.3 - 5.0 g/dL) 2.9 Hematology WBC (4.5 - 11.5 K/uL) 7.5 RBC (4.00 - 5.20 M/uL) 3.68 Hgb (12.0 - 16.0 gm/dL) 10.7 Hct (36.0 - 46.0 %) 33.8 MCV (80 - 100 fL) 92 MCH (26 - 34 pg) 29 RDW (11.6 - 14.8 %) 17.5 Neut % (Auto) (50 - 75 %) 60.5 Lymph % (Auto) (25 - 40 %) 19.7 [place] % (Auto) (3 - 14 %) 9.9 Eos % (Auto) (0 - 4 %) 9.4 Baso % (Auto) (0 - 2 %) 0.5 Plt Count, EDTA (150 - 400 K/uL) 139 PUBS MCHC (31 - 37 g/dL) 32 Imaging CXR pending. Assessment and Plan Problem List 1. Hypomagnesemia Plan Will continue supplementation. 2. Bronchitis Plan Continue zithromax. CXR pending. 3. CHF exacerbation Plan Continue diuresis.
--- NOTE | 2016-11-24 07:50 | DIAGNOSTIC IMAGING REPORT ---
PROCEDURE: XR CHEST 1 VIEW INDICATION: Bronchitis/cough/chf TECHNIQUE: Single view chest. 05:28 hours COMPARISON: 11/21/2016 FINDINGS: Moderate, stable cardiomegaly. Decreased central vascular congestion. Persistent thickening of the right minor fissure. Minor alveolar opacities at both lung bases laterally. The upper lungs are normally aerated. No pneumothorax. Intact osseous structures. IMPRESSION: 1. Improved central vascular congestion with probable mild residual bibasilar edema/tiny effusions. 2. Findings called to the floor.
[2016-11-24 10:39] VITALS: BP 120/72
[2016-11-24 14:27] VITALS: BP 102/65
[2016-11-24 18:07] VITALS: BP 129/74
[2016-11-24 22:05] VITALS: BP 134/63
[2016-11-25 03:17] VITALS: BP 142/95
[2016-11-25 08:10] VITALS: BP 118/73
[2016-11-25 10:58] VITALS: BP 118/65
--- NOTE | 2016-11-25 12:11 | Progress Note ---
Subjective General The patient is a 76-year-old white female with a significant past medical history of CHF, type 2 diabetes mellitus, diabetic neuropathy, hypothyroidism, hypertension, gout, depression, anemia, and degenerative joint disease who presented to [facility] emergency department on the day of admission secondary to complaints of shortness of breath. Diagnosed with chf, afib with rvr and had no infiltrate on CXR./ VQ scan was low probability. Improved with diuresis but had increasing cough in spite of improved bnp and clear cxr(except improving edema). Treated with zithromax but still not improved. Now reports persistent cough, painful with coughing, productive, with streak of blood in phlegm today. Physical Exam Vital Signs / I&Os Vital Signs Date Time Temp Pulse Resp B/P Pulse O2 O2 Flow FiO2 Ox Delivery Rate 11/25 1204 2.0 11/25 1058 98.1 110 24 118/65 95 Nasal 2.0 Cannula 11/25 0830 81 11/25 0830 81 11/25 0810 97.2 93 118/73 94 Nasal 2.0 Cannula 11/25 0743 2.0 11/25 0718 24 11/25 0718 90 11/25 0317 98.2 105 21 142/95 91 Nasal 2.0 Cannula 11/25 0108 2.0 11/25 0015 Nasal 2.0 Cannula 11/24 2205 97.5 97 21 134/63 97 Nasal 2.0 Cannula 11/24 1918 2.0 11/24 1854 95 11/24 1807 98.1 97 21 129/74 98 Nasal 2.0 Cannula 11/24 1545 2.0 11/24 1427 98.1 84 20 102/65 96 Nasal 2.0 Cannula 11/24 1355 2.0 I&O 11/24 0800 11/24 1600 11/25 0000 Intake Total 1596 1134 930 Output Total 1800 1650 1900 Balance -204 -516 -970 General Appearance Alert, Oriented X3, Cooperative, Mild distress Lungs Bilateral rhonchi and wheeze. Cardiovascular Regular rate and rhythm Abdomen Normal bowel sounds, Soft, No tenderness Extremities No edema Skin No Rashes LAB Results Laboratory Tests 11/25 0515 Chemistry Plasma Sodium (136 - 145 mmol/L) 141 Plasma Potassium (3.5 - 5.1 mmol/L) 4.0 Plasma Chloride (98 - 107 mmol/L) 103 CO2 (Enzymatic) (21 - 32 mmol/L) 29 BUN (7 - 18 mg/dL) 47 Creatinine (0.6 - 1.3 mg/dL) 1.5 Est GFR ( Amer) (mL/min) 43.61 Est GFR (Non-Af Amer) (mL/min) 35.98 Glucose (70 - 110 mg/dL) 96 Plasma Calcium (8.5 - 10.1 mg/dL) 8.4 Plasma Magnesium (1.8 - 2.4 mg/dL) 1.6 Total Bilirubin (0.0 - 1.0 mg/dL) 1.0 AST (15 - 37 U/L) 37 ALT (12 - 78 U/L) 34 Alkaline Phosphatase (46 - 116 U/L) 68 Total Protein (6.4 - 8.2 g/dL) 7.0 Albumin (3.3 - 5.0 g/dL) 3.2 Hematology WBC (4.5 - 11.5 K/uL) 6.9 RBC (4.00 - 5.20 M/uL) 3.85 Hgb (12.0 - 16.0 gm/dL) 11.2 Hct (36.0 - 46.0 %) 34.9 MCV (80 - 100 fL) 91 MCH (26 - 34 pg) 29 RDW (11.6 - 14.8 %) 17.2 Neut % (Auto) (50 - 75 %) 60.9 Lymph % (Auto) (25 - 40 %) 19.8 [place] % (Auto) (3 - 14 %) 9.0 Eos % (Auto) (0 - 4 %) 9.7 Baso % (Auto) (0 - 2 %) 0.6 Plt Count, EDTA (150 - 400 K/uL) 168 PUBS MCHC (31 - 37 g/dL) 32 Imaging CXR 11/24: IMPRESSION: 1. Improved central vascular congestion with probable mild residual bibasilar edema/tiny effusions. 2. Findings called to the floor. Assessment and Plan Problem List 1. Bronchitis Plan On antibiotics. Will broaden spectrum with addition of levaquin as cough is aggravating chf and copd management and causing pain. Will consider steroid for bronchodilation. 2. Hypomagnesemia Plan Improving. Will repeat IV dosage and add po supplement. 3. Atrial fibrillation with rapid ventricular response Plan Controlled on current meds. 4. CHF exacerbation Plan Improved control. 5. Diabetes mellitus Status Chronic Onset Date Unknown Plan Stable.
[2016-11-25 14:40] VITALS: BP 118/66
[2016-11-25 18:10] VITALS: BP 124/54
[2016-11-25 22:43] VITALS: BP 127/67
[2016-11-26 02:53] VITALS: BP 122/63
[2016-11-26 06:38] VITALS: BP 124/74
[2016-11-26] MEDS ORDERED: LEVOFLOXACIN500 MG PO (08:27)
[2016-11-26] MEDS ORDERED: HUMALIN 70/30 SC (08:33)
[2016-11-26] MEDS ORDERED: PREDNISONE20 MG PO (08:39)
[2016-11-26 10:27] VITALS: BP 133/71
--- NOTE | 2016-11-26 11:35 | Provider's Discharge Care Plan ---
Problem, Goal, Plan Problem List 1. Bronchitis Instructions: Take meds as directed 2. Hypertension Instructions: Take meds as directed 3. Atrial fibrillation Instructions: Take meds as directed 4. Chronic anticoagulation Instructions: Take meds as directed
--- NOTE | 2016-11-26 11:35 | Provider's Discharge Care Plan ---
Problem, Goal, Plan Problem List 1. Bronchitis Instructions: Take meds as directed 2. Atrial fibrillation Instructions: Take meds as directed
--- NOTE | 2016-11-26 11:35 | Provider's Discharge Care Plan ---
Problem, Goal, Plan Problem List 1. Bronchitis Instructions: Take meds as directed 2. Atrial fibrillation Instructions: Take meds as directed
--- NOTE | 2016-11-26 12:40 | DISCHARGE SUMMARY ---
ADMIT DATE: 11/21/2016 DISCHARGE DATE: 11/26/2016 ADMISSION DIAGNOSES: 1. Congestive heart failure, acute exacerbation. 2. Atrial fibrillation with rapid ventricular response. 3. Chronic anticoagulation. 4. Diabetes mellitus. 5. Hypertension. 6. Hypothyroidism. 7. Hyperlipidemia. 8. Depression DISCHARGE DIAGNOSES: 1. Congestive heart failure, acute exacerbation. 2. Atrial fibrillation with rapid ventricular response. 3. Chronic anticoagulation. 4. Bronchitis with bronchospasm. 5. Diabetes mellitus. 6. Hypertension. 7. Hypothyroidism. 8. Hyperlipidemia. 9. Depression. BRIEF HISTORY: This 76-year-old female presented to [facility] with increasing shortness of breath. She had missed her pills for several days due to running out and not getting them refilled. In the emergency department, findings were consistent with exacerbation of congestive heart failure. She did, however, have an elevated D-dimer. V/Q scan was therefore obtained, which was negative. The patient also has been on Xarelto, which she had not missed. She was therefore admitted for management of acute exacerbation of congestive heart failure. HOSPITAL COURSE: The patient was admitted and treated with IV furosemide in addition to continuation of her oral torsemide as prior to admission. With this, she had steady diuresis and a steadily declining BNP. Chest x-ray on admission showed evidence of pulmonary edema without infiltrate. During the hospitalization, the patient began to have increasing cough, which worsened and became quite severe with marked wheezing. She was treated with nebulized bronchodilators with minimal benefit and repeat chest x- ray was obtained, which confirmed no infiltrate. A diagnosis of bronchitis with bronchospasm was established. The patient was started on Zithromax, but continued not to improve. Therefore, Levaquin was added. In addition, the patient was given IV Solu-Medrol with warning of risk of elevated blood sugars. This resulted in improvement in her cough and bronchodilation. She had also been treated with Tessalon Perles and with promethazine with codeine cough syrup with minimal benefit. The patient had some confusion with the codeine, but no evidence of allergy. Her blood sugars were moderately high and controlled on a sliding scale on admission. They then worsened again with IV steroids and sliding scale was therefore increased. DISCHARGE INSTRUCTIONS/MEDICATIONS: 1. Disposition: Home. 2. Discharge medications: a. Levofloxacin 500 mg p.o. daily x5 days. b. Prednisone 20 mg p.o. daily. c. Omeprazole 20 mg p.o. q.a.m. d. Losartan 100 mg p.o. q.a.m. e. Atorvastatin 80 mg p.o. q.p.m. f. Glimepiride 4 mg p.o. b.i.d. g. Digoxin 0.5 mg p.o. q.a.m. h. Sertraline 50 mg p.o. at bedtime. i. Aspirin 1 p.o. daily. j. Magnesium 500 mg p.o. b.i.d. k. Glucosamine 2000 p.o. b.i.d. l. Ibuprofen and acetaminophen with hydrocodone were discontinued. m. Insulin Humulin 70/30, 20 units subcutaneous q.a.m. and 5-10 units subcutaneous q.p.m. per sliding scale. 3. Special instructions: The patient was advised that blood sugars will probably run higher in the next few days and advised to manage this with her sliding scale. She is to contact me if there are further difficulties with that. Followup with me in 1-2 weeks.
--- NOTE | 2016-11-27 08:56 | ED MED RECONCILIATION SUMMARY ---
Patient: GORDONCHINA FLOWERSCHU Zamudio Medication Reconciliation Report [facility] VisitID: [id number] [address] [place] [address] 76y, F Registration Date/Time: 11/21/2016 Weight: 115.2 kg Height/Length: 64 in. BMI: 43.6 ALLERGIES: Allopurinol, Colchicine, Keflex, Metformin HCl, Penicillins, Septra, Sulfa Antibiotics, Uloric, Vicodin The patient's Home Medications are listed below: THE FOLLOWING MEDICATIONS NEED TO BE RECONCILED: Atorvastatin Calcium Oral 80 mg, daily Carvedilol 3.125 mg twice a day Eliquis Oral (5 mg) 1 tablet, twice a day EpiPen 2-Roshan Injection Gabapentin Oral Glimepiride Oral (4 mg) 1 tablet, twice a day Glucosamine HCl Oral (500 mg) 1 tablet, twice a day HumuLIN 70/30 Subcutaneous 27 units q am and 10 units q pm Lanoxin Oral 0.125 mg, daily Losartan Potassium Oral 100 mg, daily Magnesium Oral 500 mg, 2x a day Omeprazole Oral 20 mg, daily Sertraline HCl Oral 50 mg, daily Torsemide Oral The source(s) of the original Home Medication information: Not obtained. The following Medications were given to the patient in the Emergency Department: Metoprolol [IVP] IVP 2.5 mg, administered: 11/21/2016 12:33:00 PM Duoneb [Neb Tx] Neb TX 1 unit dose, administered: 11/21/2016 1:15:00 PM Albuterol [Neb Tx] Neb TX 1 unit dose, administered: 11/21/2016 2:08:00 PM Lasix [IVP] IVP 20 mg, administered: 11/21/2016 6:04:00 PM Nitroglycerin [SL] SL 0.4 mg, administered: 11/21/2016 6:04:00 PM INSULIN 70/30 [SUBCUTANEOUS] Subcutaneous 5 unit, administered: 11/21/2016 6:51:00 PM NITROGLYCERIN PASTE [TOPICAL] Topical 0.5 in., administered: 11/21/2016 8:36:00 PM The following Medications were prescribed to the patient: None.
--- NOTE | 2016-11-27 08:56 | ED DISCHARGE INSTRUCTIONS ---
Patient: MARYANN GORDON General Instructions [facility] VisitID: [id number] [address] [place] [address] 76y, F Registration Date/Time: 11/21/2016 a fib with rvr acute CHF exacerbation. (Electronically signed by Benedicto Rose Dr. 11/27/2016 8:56)
--- NOTE | 2016-11-27 08:56 | ED MED RECONCILIATION SUMMARY ---
Patient: GORDONCHINA FLOWERSCHU Zamudio Medication Reconciliation Report [facility] VisitID: [id number] [address] [place] [address] 76y, F Registration Date/Time: 11/21/2016 Weight: 115.2 kg Height/Length: 64 in. BMI: 43.6 ALLERGIES: Allopurinol, Colchicine, Keflex, Metformin HCl, Penicillins, Septra, Sulfa Antibiotics, Uloric, Vicodin The patient's Home Medications are listed below: THE FOLLOWING MEDICATIONS NEED TO BE RECONCILED: Atorvastatin Calcium Oral 80 mg, daily Carvedilol 3.125 mg twice a day Eliquis Oral (5 mg) 1 tablet, twice a day EpiPen 2-Roshan Injection Gabapentin Oral Glimepiride Oral (4 mg) 1 tablet, twice a day Glucosamine HCl Oral (500 mg) 1 tablet, twice a day HumuLIN 70/30 Subcutaneous 27 units q am and 10 units q pm Lanoxin Oral 0.125 mg, daily Losartan Potassium Oral 100 mg, daily Magnesium Oral 500 mg, 2x a day Omeprazole Oral 20 mg, daily Sertraline HCl Oral 50 mg, daily Torsemide Oral The source(s) of the original Home Medication information: Not obtained. The following Medications were given to the patient in the Emergency Department: Metoprolol [IVP] IVP 2.5 mg, administered: 11/21/2016 12:33:00 PM Duoneb [Neb Tx] Neb TX 1 unit dose, administered: 11/21/2016 1:15:00 PM Albuterol [Neb Tx] Neb TX 1 unit dose, administered: 11/21/2016 2:08:00 PM Lasix [IVP] IVP 20 mg, administered: 11/21/2016 6:04:00 PM Nitroglycerin [SL] SL 0.4 mg, administered: 11/21/2016 6:04:00 PM INSULIN 70/30 [SUBCUTANEOUS] Subcutaneous 5 unit, administered: 11/21/2016 6:51:00 PM NITROGLYCERIN PASTE [TOPICAL] Topical 0.5 in., administered: 11/21/2016 8:36:00 PM The following Medications were prescribed to the patient: None.
--- NOTE | 2016-11-27 08:56 | ED MAR SUMMARY ---
..... Medication Administration Record Merged With [facility] [address] [place] [address] Patient: MARYANN GORDON Visit ID: [id number] 76y, F Weight: 115.2 kg Height/Length: 64 in BMI: 43.6 ALLERGIES: Uloric, Colchicine, Allopurinol, Keflex, Metformin HCl, Penicillins, Septra, Sulfa Antibiotics, Vicodin Given 12:33 11/21/2016 Dre Valdez R.N. Medication Administered: METOPROLOL [IVP] (METOPROLOL TARTRATE), Dose: 2.5 mg IVP over 2 minute(s), Site: #1 left AC. Medication Ordered: Metoprolol IV 2.5 mg (HIGH ALERT MEDICATION, NOW). Given 13:15 11/21/2016 Omayra Benson, Medication Administered: DUONEB [NEB TX] (IPRATROPIUM-ALBUTEROL), Dose: 1 unit dose Nebulizer Neb TX. Medication Ordered: DuoNeb Neb Tx 1 unit dose (NOW). Given 14:08 11/21/2016 Omayra Benson, Medication Administered: ALBUTEROL [NEB TX], Dose: 1 unit dose Nebulizer Neb TX. Medication Ordered: Albuterol Neb Tx 2.5 mg (once now). Given 18:04 11/21/2016 Dre Valdez R.N. Medication Administered: LASIX [IVP], Dose: 20 mg IVP over 2 minute(s), Site: #1 left AC. Medication Ordered: Lasix IV 20 mg (NOW). Given 18:04 11/21/2016 Dre Valdez R.N. Medication Administered: NITROGLYCERIN [SL], Dose: 0.4 mg Tablets SL. Medication Ordered: NitroGLYCERIN SL 0.4 mg (once now). Given 18:51 11/21/2016 Dre Valdez R.N. Medication Administered: INSULIN 70/30 [SUBCUTANEOUS], Dose: 5 unit Subcutaneous. Medication Ordered: Insulin 70/30 Subcut (NOW). Given 20:36 11/21/2016 Serafin Mike R.N. Medication Administered: NITROGLYCERIN PASTE [TOPICAL], Dose: 0.5 in. Paste Topical. Medication Ordered: NitroGLYCERIN Paste Topical 0.5 in. (NOW).
--- NOTE | 2016-11-27 08:56 | ED DISCHARGE INSTRUCTIONS ---
Patient: MARYANN GORDON General Instructions [facility] VisitID: [id number] [address] [place] [address] 76y, F Registration Date/Time: 11/21/2016 a fib with rvr acute CHF exacerbation. (Electronically signed by Benedicto Rose Dr. 11/27/2016 8:56)
--- NOTE | 2016-11-27 08:56 | ED MAR SUMMARY ---
..... Medication Administration Record [facility] [address] [place] [address] Patient: MARYANN GORDON Visit ID: [id number] 76y, F Weight: 115.2 kg Height/Length: 64 in BMI: 43.6 ALLERGIES: Uloric, Colchicine, Allopurinol, Keflex, Metformin HCl, Penicillins, Septra, Sulfa Antibiotics, Vicodin Given 12:33 11/21/2016 Dre Valdez R.N. Medication Administered: METOPROLOL [IVP] (METOPROLOL TARTRATE), Dose: 2.5 mg IVP over 2 minute(s), Site: #1 left AC. Medication Ordered: Metoprolol IV 2.5 mg (HIGH ALERT MEDICATION, NOW). Given 13:15 11/21/2016 Omayra Benson, Medication Administered: DUONEB [NEB TX] (IPRATROPIUM-ALBUTEROL), Dose: 1 unit dose Nebulizer Neb TX. Medication Ordered: DuoNeb Neb Tx 1 unit dose (NOW). Given 14:08 11/21/2016 Omayra Benson, Medication Administered: ALBUTEROL [NEB TX], Dose: 1 unit dose Nebulizer Neb TX. Medication Ordered: Albuterol Neb Tx 2.5 mg (once now). Given 18:04 11/21/2016 Dre Valdez R.N. Medication Administered: LASIX [IVP], Dose: 20 mg IVP over 2 minute(s), Site: #1 left AC. Medication Ordered: Lasix IV 20 mg (NOW). Given 18:04 11/21/2016 Dre Valdez R.N. Medication Administered: NITROGLYCERIN [SL], Dose: 0.4 mg Tablets SL. Medication Ordered: NitroGLYCERIN SL 0.4 mg (once now). Given 18:51 11/21/2016 Dre Valdez R.N. Medication Administered: INSULIN 70/30 [SUBCUTANEOUS], Dose: 5 unit Subcutaneous. Medication Ordered: Insulin 70/30 Subcut (NOW). Given 20:36 11/21/2016 Serafin Mike R.N. Medication Administered: NITROGLYCERIN PASTE [TOPICAL], Dose: 0.5 in. Paste Topical. Medication Ordered: NitroGLYCERIN Paste Topical 0.5 in. (NOW).
== END 2016-11-26 12:00 | disposition home or self-care (01) | DRG 292 ==
LOC: ED SRH 11:56 → TRANS SRH 18:23 → ACUTE2 SRH 22:10
PROVIDERS: ADMIT Student in an Organized Health Care Education/Training Program
DX: I11.0 Hypertensive heart disease with heart failure (principal); I50.23 Acute on chronic systolic (congestive) heart failure; J44.0 Chronic obstructive pulmonary disease with (acute) lower respiratory infection; J20.9 Acute bronchitis, unspecified; T50.1X6A Underdosing of loop [high-ceiling] diuretics, initial encounter; Z91.128 Patient's intentional underdosing of medication regimen for other reason; E11.40 Type 2 diabetes mellitus with diabetic neuropathy, unspecified; Z79.4 Long term (current) use of insulin; I48.91 Unspecified atrial fibrillation; Z79.01 Long term (current) use of anticoagulants; E83.42 Hypomagnesemia; E03.9 Hypothyroidism, unspecified; E78.5 Hyperlipidemia, unspecified; F32.9 Major depressive disorder, single episode, unspecified
CPT/HCPCS: 85241; 85244; 90004; 90074; 90098; 90100; 90616; 91286; 91320; 91556; 92720; 93140; 94060; 95059